=== PATIENT | male | born 1990 | race Caucasian/White ===

== ENCOUNTER 2023-02-20 08:42 | Emergency (ER) | payer OTHER, SELFPAY ==
[2023-02-20 08:44] VITALS: BP 154/83; PULSE 81; RESP 18; TEMP 36.6; O2SAT 100; BMI 19.4
--- NOTE | 2023-02-20 08:53 | ED_ITS ---
HPI - General Adult General Chief complaint: Ear/Nose/Throat Problem Stated complaint: Left plugged ear Time Seen by Provider: 02/20/23 08:45 History of Present Illness HPI narrative: 32-year-old male with a left ear plugged over the last few days. No pain, no fever, does not feel ill. Related Data Home Medications Medication Instructions Recorded Confirmed No Known Home Medications 02/20/23 02/20/23 Allergies Allergy/AdvReac Type Severity Reaction Status Date / Time penecillin AdvReac Intermediate Uncoded 02/20/23 08:48 Review of Systems Status of ROS: Reports: 6 or more systems reviewed and unremarkable except as noted in History and below PFSH PFSH Social History Smoking Status: Never smoker Do you use any of these nicotine containing products: None How often do you have a drink containing alcohol: monthly or less How often do you have six or more drinks on one occasion: Never AUDIT-C Alcohol total score: 1 Non-prescribed substance use: denies use Exam Narrative: Exam Narrative: Objective vital signs unremarkable afebrile, systolic blood pressure is minimally elevated HEENT shows left cerumen impaction, right ear is clear, throat clear Const: Vital Signs, click to edit/add: Vital Signs - 24 hr 02/20/23 08:44 Temperature 97.8 F Pulse Rate [Right Pulse Oximeter] 81 Respiratory Rate 18 Blood Pressure [Ri ght Upper Arm] 154/83 H Pulse Oximetry 100 Oxygen Delivery Me thod Room Air Course Vital Signs Vital signs: Initial Vital Signs Temperature 97.8 F 02/20/23 08:44 Temperature Source Temporal Artery Scan 02/20/23 08:44 Pulse Rate 81 02/20/23 08:44 Pulse Rhythm Regular 02/20/23 08:44 Respiratory Rate 18 02/20/23 08:44 Blood Pressure 154/83 H 02/20/23 08:44 Blood Pressure Mean 106 H 02/20/23 08:44 Pulse Oximetry 100 02/20/23 08:44 Oxygen Delivery Method Room Air 02/20/23 08:44 Vital Signs Temperature 97.8 F 02/20/23 08:44 Pulse Rate 81 02/20/23 08:44 Respiratory Rate 18 02/20/23 08:44 Blood Pressure 154/83 H 02/20/23 08:44 Pulse Oximetry 100 02/20/23 08:44 Oxygen Delivery Method Room Air 02/20/23 08:44 Temperature 97.8 F 02/20/23 08:44 Pulse Rate 81 02/20/23 08:44 Respiratory Rate 18 02/20/23 08:44 Blood Pressure 154/83 H 02/20/23 08:44 Pulse Oximetry 100 02/20/23 08:44 Oxygen Delivery Method Room Air 02/20/23 08:44 Medical Decision Making MDM Narrative Medical decision making narrative: [age] year white male with a cerumen impaction left ear, will have staff irrigate this out. Recommend he use some Debrox drops to clear it out the remaining wax over over the next week or so. Follow-up with primary care as needed. Addendum 9:15 a.m. the patient's ear looks clear after her earwax removal by staff. Discharge Plan Discharge Clinical Impression: Cerumen impaction Patient Disposition: Home, Self-Care Condition: Improved Additional Instructions: Would recommend you try some Debrox (earwax remover) in the ear as well to keep it clear for the next week or so. He can pick this up at the pharmacy [id number] at your convenience. Follow-up with primary care as needed. Activity Level: No Restrictions Discharge Diet: Regular Prescriptions: No Action No Known Home Medications Stand Alone Forms: [employer] Info Instructions
--- NOTE | 2023-02-20 09:07 | ED.NURSE ---
Irrigated Sweetie obando MD looked at ear afterwards and was cleared.
== END 2023-02-20 09:11 | disposition home or self-care (01) ==
LOC: ED 09:12
PROVIDERS: Emergency Provider Family Medicine
DX: H61.22 Impacted cerumen, left ear (principal)
CPT/HCPCS: 99283

== ENCOUNTER 2023-09-20 11:56 | Emergency (ER) | payer OTHER, SELFPAY ==
[2023-09-20] VITALS (10 sets, daily range): BP systolic 124–145; BP diastolic 69–89; PULSE 60–77; RESP 10–20; TEMP 36.8; O2SAT 98–100; BMI 25.1
--- NOTE | 2023-09-20 12:10 | ED.UPPEXIN ---
HPI - Extremity Injury (Upper) General Time Seen by Provider: 12:10 <Carol Ann Han MD - Last Filed: 09/20/23 13:20> Date Seen: 09/20/23 <Carol Ann Han MD - Last Filed: 09/20/23 13:20> Chief Complaint: Extremity Pain/Injury, Upper <Carol Ann Han MD - Last Filed: 09/20/23 13:20> Stated Complaint: LT shoulder poss dislocation <Carol Ann Han MD - Last Filed: 09/20/23 13:20> Time Seen by Provider: 09/20/23 11:58 <Carol Ann Han MD - Last Filed: 09/20/23 13:20> Source: patient and RN notes reviewed <Carol Ann Han MD - Last Filed: 09/20/23 13:20> Mode of arrival: ambulatory <Carol Ann Han MD - Last Filed: 09/20/23 13:20> Limitations: no limitations <Carol Ann Han MD - Last Filed: 09/20/23 13:20> History of Present Illness HPI narrative: This 33-year-old male is coming into the ER with concern of left shoulder dislocation. Just prior to arrival, he accidentally fell into a hole, braced with his left elbow. He was doing some plumbing, accidentally slipped into a crawl space which was maybe about a foot and half deep, braced himself with his left arm on the wall as he went down. He had immediate pain in left shoulder, describes it as a constant sharp pain. He states the shoulder area feels numb but the hand and distal arm have normal sensation, no numbness or tingling. He did not hit his head, no neck pain, no difficulty breathing, no concerns with pain elsewhere. He is in significant pain in the left shoulder area. He last ate dinner last night. <Carol Ann Han MD - Last Filed: 09/20/23 13:20> MD complaint: injury to: left and shoulder <Carol Ann Han MD - Last Filed: 09/20/23 13:20> Related Data Home Medications: Home Medications ?Medication ?Instructions ?Recorded ?Confirmed No Known Home Medications 02/20/23 02/20/23 <Carol Ann Han MD - Last Filed: 09/20/23 13:20> Allergies/Adverse Reactions: Allergies Allergy/AdvReac Type Severity Reaction Status Date / Time penecillin AdvReac Intermediate Uncoded 02/20/23 08:48 <Carol Ann Han MD - Last Filed: 09/20/23 13:20> Review of Systems Narrative: As per HPI. <Carol Ann Han MD - Last Filed: 09/20/23 13:20> PFSH PFSH Social History: Social History Smoking Status: Never smoker Do you use any of these nicotine containing products: None How often do you have a drink containing alcohol: monthly or less How often do you have six or more drinks on one occasion: Never AUDIT-C Alcohol total score: 1 Non-prescribed substance use: denies use <Carol Ann Han MD - Last Filed: 09/20/23 13:20> Exam Const: Vital Signs, click to edit/add: Vital Signs - 24 hr 09/20/23 12:03 09/20/23 12:12 09/20/23 12:30 Temperature 98.2 F Pulse Rate 61 Pulse Rate [Left P ulse Oximeter] 60 Respiratory Rate 20 Blood Pressure 145/89 H Blood Pressure [Le ft Upper Arm] 132/87 Pulse Oximetry 100 100 99 Oxygen Delivery Me thod Room Air 09/20/23 12:38 09/20/23 12:44 09/20/23 12:45 Temperature Pulse Rate 75 77 Pulse Rate [Left P ulse Oximeter] Respiratory Rate 14 10 L 15 Blood Pressure 134/86 124/82 Blood Pressure [Le ft Upper Arm] Pulse Oximetry 99 98 Oxygen Delivery Me thod 09/20/23 12:47 09/20/23 12:52 09/20/23 12:52 Temperature Pulse Rate 76 63 63 Pulse Rate [Left P ulse Oximeter] Respiratory Rate 16 17 17 Blood Pressure 138/69 132/85 132/85 Blood Pressure [Le ft Upper Arm] Pulse Oximetry 99 98 98 Oxygen Delivery Me thod 09/20/23 13:00 09/20/23 13:02 Temperature Pulse Rate 67 63 Pulse Rate [Left P ulse Oximeter] Respiratory Rate 12 13 Blood Pressure 132/83 Blood Pressure [Le ft Upper Arm] Pulse Oximetry 100 99 Oxygen Delivery Me thod This 33-year-old male is crying out in pain intermittently, looks pale but is alert and interactive, standing in the room. You can see a sulcus sign of this left shoulder area. He has normal sensation of his left fingers, has a good radial pulse. He does not have tenderness over the left clavicle. Lungs are clear, good air entry, no wheezing crackles. CV regular rate and rhythm, no murmur. Sclera clear, conjugate gaze, symmetrical facial function, face atraumatic. <Carol Ann Han MD - Last Filed: 09/20/23 13:20> Vital Signs, click to edit/add: Vital Signs - 24 hr 09/20/23 12:03 09/20/23 12:12 09/20/23 12:30 Temperature 98.2 F Pulse Rate 61 Pulse Rate [Left P ulse Oximeter] 60 Respiratory Rate 20 Blood Pressure 145/89 H Blood Pressure [Le ft Upper Arm] 132/87 Pulse Oximetry 100 100 99 Oxygen Delivery Me od Room Air 09/20/23 12:38 09/20/23 12:44 09/20/23 12:45 Temperature Pulse Rate 75 77 Pulse Rate [Left P ulse Oximeter] Respiratory Rate 14 10 L 15 Blood Pressure 134/86 124/82 Blood Pressure [Le ft Upper Arm] Pulse Oximetry 99 98 Oxygen Delivery Me thod 09/20/23 12:47 09/20/23 12:52 09/20/23 12:52 Temperature Pulse Rate 76 63 63 Pulse Rate [Left P ulse Oximeter] Respiratory Rate 16 17 17 Blood Pressure 138/69 132/85 132/85 Blood Pressure [Le ft Upper Arm] Pulse Oximetry 99 98 98 Oxygen Delivery Me thod 09/20/23 13:00 09/20/23 13:02 Temperature Pulse Rate 67 63 Pulse Rate [Left P ulse Oximeter] Respiratory Rate 12 13 Blood Pressure 132/83 Blood Pressure [Le ft Upper Arm] Pulse Oximetry 100 99 Oxygen Delivery Me thod <Abbie H Block, MD - Last Filed: 09/20/23 13:15> Documenting provider has reviewed patient's vital signs: yes <Carol Ann Han MD - Last Filed: 09/20/23 13:20> Course Course ED Course: Nursing staff had already appropriately got an IV in place, ordered morphine and Zofran for some initial pain control. We will try to get some initial images on this patient's left shoulder so that we can proceed with likely shoulder reduction. Dr. Gore is aware, she will be assisting with anesthesia, propofol is been ordered. Patient has been NPO since last night per report. We will get appropriate cardiac monitoring, pulse oximetry applied. <Carol Ann Han MD - Last Filed: 09/20/23 13:20> Nursing staff had already appropriately got an IV in place, ordered morphine and Zofran for some initial pain control. We will try to get some initial images on this patient's left shoulder so that we can proceed with likely shoulder reduction. Dr. Gore is aware, she will be assisting with anesthesia, propofol is been ordered. Patient has been NPO since last night per report. We will get appropriate cardiac monitoring, pulse oximetry applied. Procedure note: Procedural sedation was used for reduction of left shoulder. Patient noted no allergies anesthesia but did say that after waking up from wisdom teeth removal he felt awful and very nauseated. Did not seemingly have any vomiting. Denies other significant medical history. Risks and benefits reviewed by Dr. Calabrese, consent obtained. Patient was placed on pulse oximetry, cardiac and end-tidal CO2 monitoring and RT was present. He was given initially 80 mg of propofol all then 20 mg boluses to a total of 120. Adequate sedation was achieved to reduce the shoulder. He had no hypoxia or hypercarbia. Tolerated all of this well, awakened without difficulty. <Abbie Gore MD - Last Filed: 09/20/23 13:15> Vital Signs Vital signs: Initial Vital Signs Temperature 98.2 F 09/20/23 12:03 Temperature Source Temporal Artery Scan 09/20/23 12:03 Pulse Rate 60 09/20/23 12:03 Pulse Rhythm Regular 09/20/23 12:03 Pulse Strength 3+ Normal 09/20/23 12:03 Respiratory Rate 20 09/20/23 12:03 Blood Pressure 132/87 09/20/23 12:03 Blood Pressure Mean 102 09/20/23 12:03 Blood Pressure Position Sitting 09/20/23 12:03 Pulse Oximetry 100 09/20/23 12:03 Oxygen Delivery Method Room Air 09/20/23 12:03 Vital Signs Temperature 98.2 F 09/20/23 12:03 Pulse Rate 60 09/20/23 12:03 Respiratory Rate 20 09/20/23 12:03 Blood Pressure 132/87 09/20/23 12:03 Pulse Oximetry 100 09/20/23 12:03 Oxygen Delivery Method Room Air 09/20/23 12:03 Temperature 98.2 F 09/20/23 12:03 Pulse Rate 63 09/20/23 13:02 Respiratory Rate 13 09/20/23 13:02 Blood Pressure 132/83 09/20/23 13:02 Pulse Oximetry 99 09/20/23 13:02 Oxygen Delivery Method Room Air 09/20/23 12:03 <Carol Ann Han MD - Last Filed: 09/20/23 13:20> Initial Vital Signs Temperature 98.2 F 09/20/23 12:03 Temperature Source Temporal Artery Scan 09/20/23 12:03 Pulse Rate 60 09/20/23 12:03 Pulse Rhythm Regular 09/20/23 12:03 Pulse Strength 3+ Normal 09/20/23 12:03 Respiratory Rate 20 09/20/23 12:03 Blood Pressure 132/87 09/20/23 12:03 Blood Pressure Mean 102 09/20/23 12:03 Blood Pressure Position Sitting 09/20/23 12:03 Pulse Oximetry 100 09/20/23 12:03 Oxygen Delivery Method Room Air 09/20/23 12:03 Vital Signs Temperature 98.2 F 09/20/23 12:03 Pulse Rate 60 09/20/23 12:03 Respiratory Rate 20 09/20/23 12:03 Blood Pressure 132/87 09/20/23 12:03 Pulse Oximetry 100 09/20/23 12:03 Oxygen Delivery Method Room Air 09/20/23 12:03 Temperature 98.2 F 09/20/23 12:03 Pulse Rate 63 09/20/23 13:02 Respiratory Rate 13 09/20/23 13:02 Blood Pressure 132/83 09/20/23 13:02 Pulse Oximetry 99 09/20/23 13:02 Oxygen Delivery Method Room Air 09/20/23 12:03 <Abbie Gore MD - Last Filed: 09/20/23 13:15> Medications Administered Medications: Generic Name Dose Route Start Last Admin Trade Name Freq PRN Reason Stop Dose Admin Sodium Chloride 500 mls @ 500 mls/hr 09/20/23 13:11 09/20/23 13:10 0.9 % Sodium Chloride 500 Ml IV 09/20/23 14:10 Infused .Q1H ONE Infusion Discontinued Medications Generic Name Dose Route Start Last Admin Trade Name Freq PRN Reason Stop Dose Admin Morphine Sulfate 4 mg 09/20/23 12:11 09/20/23 12:21 Morphine 4 Mg/Ml Inj IVP 09/20/23 12:12 4 mg ONCE ONE Administration Ondansetron HCl 4 mg 09/20/23 12:11 09/20/23 12:21 Ondansetron 2 Mg/Ml Inj IVP 09/20/23 12:12 4 mg ONCE ONE Administration Propofol 200 mg 09/20/23 12:11 09/20/23 12:38 Propofol 10 Mg/Ml Inj IVP 09/20/23 12:12 120 mg ONCE ONE Administration <Carol Ann Han MD - Last Filed: 09/20/23 13:20> Generic Name Dose Route Start Last Admin Trade Name Freq PRN Reason Stop Dose Admin Sodium Chloride 500 mls @ 500 mls/hr 09/20/23 13:11 09/20/23 13:10 0.9 % Sodium Chloride 500 Ml IV 09/20/23 14:10 Infused .Q1H ONE Infusion Discontinued Medications Generic Name Dose Route Start Last Admin Trade Name Freq PRN Reason Stop Dose Admin Morphine Sulfate 4 mg 09/20/23 12:11 09/20/23 12:21 Morphine 4 Mg/Ml Inj IVP 09/20/23 12:12 4 mg ONCE ONE Administration Ondansetron HCl 4 mg 09/20/23 12:11 09/20/23 12:21 Ondansetron 2 Mg/Ml Inj IVP 09/20/23 12:12 4 mg ONCE ONE Administration Propofol 200 mg 09/20/23 12:11 09/20/23 12:38 Propofol 10 Mg/Ml Inj IVP 09/20/23 12:12 120 mg ONCE ONE Administration <Abbie Gore MD - Last Filed: 09/20/23 13:15> MDM - Extremity Injury (Upper) Imaging Data XR left shoulder: Attestation: I have reviewed the pertinent imaging results. <Carol Ann Han MD - Last Filed: 09/20/23 13:20> My impression: Did review films, anterior dislocation without evident fracture, will await radiology over read but we are proceeding with reduction procedure. <Carol Ann Han MD - Last Filed: 09/20/23 13:20> Radiologist's impression: Patient: GUSTAVO CONTI Facility:?[facility] Patient ID:?[id number] Site Patient ID:?[id number]. Site :?[id number] Study:?XRay-Shoulder Left -09/20/2023 12:26:05 PM Ordering Physician:Sue Maharaj Final Report: Indication: Dislocation. Technique: Left shoulder 3 views. Comparison: None. Findings/Impression: Anterior shoulder dislocation, as clinically reported. No evident acute fracture. Dictated by Hebert Leung MD @ 09/20/2023 12:54:34 PM (Electronic Signature) <Carol Ann Han MD - Last Filed: 09/20/23 13:20> Discharge Plan Discharge Clinical Impression: Anterior shoulder dislocation Qualifiers: Encounter type: initial encounter Laterality: left Qualified Code(s): S43.015A - Anterior dislocation of left humerus, initial encounter <Carol Ann Han MD - Last Filed: 09/20/23 13:20> Patient Disposition: Home, Self-Care <Carol Ann Han MD - Last Filed: 09/20/23 13:20> Condition: Stable <Carol Ann Han MD - Last Filed: 09/20/23 13:20> Instructions: Shoulder Dislocation (ED) <Carol Ann Han MD - Last Filed: 09/20/23 13:20> Additional Instructions: Need to follow up with orthopedics, call [phone] to get scheduled. Keep sling on for comfort. No overhead use/keep arm below shoulder level until further advised by orthopedics. For any residual discomfort, can use Tylenol/ibuprofen per bottle directions as needed. Do recommend ice to the shoulder area for the next 48 hours as this will help diminish swelling/pain. <Carol Ann Han MD - Last Filed: 09/20/23 13:20> Prescriptions: No Action No Known Home Medications <Carol Ann Han MD - Last Filed: 09/20/23 13:20> Follow Up/Referrals: Provider,Not a Local [Primary Care Provider] - <Carol Ann Han MD - Last Filed: 09/20/23 13:20> Stand Alone Forms: [facility] Info Instructions <Carol Ann Han MD - Last Filed: 09/20/23 13:20> Procedures Orthopedic Joint Reduction Joint #1: Written consent by: patient (With his signing per his request.) <Carol Ann Han MD - Last Filed: 09/20/23 13:20> Time Out Performed: Yes <Carol Ann Han MD - Last Filed: 09/20/23 13:20> Side: left <Carol Ann Han MD - Last Filed: 09/20/23 13:20> Joint Reduction Location: shoulder <Carol Ann Han MD - Last Filed: 09/20/23 13:20> Manipulation used?: Yes <Carol Ann Han MD - Last Filed: 09/20/23 13:20> Analgesia: procedural sedation <Carol Ann Han MD - Last Filed: 09/20/23 13:20> Shoulder Technique Used (if applicable): traction/counter-traction and external rotation <Carol Ann Han MD - Last Filed: 09/20/23 13:20> Post-reduction neuro vascular exam: intact and no change <Carol Ann Han MD - Last Filed: 09/20/23 13:20> Post Reduction X-Ray Obtained: Yes <Carol Ann Han MD - Last Filed: 09/20/23 13:20> Splint Applied: Yes (Arm sling applied) <Carol Ann Han MD - Last Filed: 09/20/23 13:20> Patient Tolerated Procedure: well <Carol Ann Han MD - Last Filed: 09/20/23 13:20> Additional Comments: Please see Dr. Gore's notation for procedural sedation. <Carol Ann Han MD - Last Filed: 09/20/23 13:20>
--- NOTE | 2023-09-20 12:11 | CRLHL7_ITS ---
For Patients: As a result of the Cures Act, medical imaging exams and procedure reports are released immediately into your electronic medical record. You may view this report before your referring provider. If you have questions, please contact your health care provider. Indication: Dislocation. Technique: Left shoulder 3 views. Comparison: None. Findings/Impression: Anterior shoulder dislocation, as clinically reported. No evident acute fracture. Dictated by Hebert Leung MD @ 09/20/2023 12:54:34 PM (Electronically Signed)
[2023-09-20] MEDS: ONDANSETRON 2 MG/ML inj 4 MG IVP (12:21)
[2023-09-20] MEDS: MORPHINE 4 MG/ML INJ IVP (12:21)
[2023-09-20] MEDS: 0.9 % SODIUM CHLORIDE 500 ML 500 ML IV (12:35)
[2023-09-20] MEDS: PROPOFOL 10 MG/ML INJ 200 MG IVP (12:38)
--- NOTE | 2023-09-20 12:42 | CRLHL7_ITS ---
For Patients: As a result of the Cures Act, medical imaging exams and procedure reports are released immediately into your electronic medical record. You may view this report before your referring provider. If you have questions, please contact your health care provider. INDICATION: Postreduction. COMPARISON: Earlier radiographs performed today. TECHNIQUE: One view FINDINGS: Interval reduction of the previously demonstrated anteroinferior glenohumeral dislocation. No Hill-Sachs impaction fracture deformity or bony Bankart lesion is identified. IMPRESSION: Interval reduction as above. Dictated by Shahram Epps MD @ 09/20/2023 1:20:16 PM (Electronically Signed)
--- NOTE | 2023-09-20 13:14 | RESP.RT ---
Conscious sedation for Left anterior shoulder dislocation reset; patient on NC 2 Lpm SaO2 100%, with EtCO2 in line 27-32 torr, respiratory rate 17-23/minute. During procedure SaO2 remained 100%, EtCO2 24-30 torr, and respiratory rate decreased to 8/minute for very short time, under a minute. Post procedure Maycol signs return to pre-procedure numbers. Patient awake, alert, talking. Self inflating bag at beside, air way cart at the door.
== END 2023-09-20 13:27 | disposition home or self-care (01) ==
LOC: ED 13:21
PROVIDERS: Emergency Provider Family Medicine
DX: S43.005A Unspecified dislocation of left shoulder joint, initial encounter (principal); W17.2XXA Fall into hole, initial encounter
CPT/HCPCS: 23650; 73030; 94761; 99284; 99285; J2270; J2405; J2704; J7030